=== PATIENT | female | born 1995 | race Native Hawaiian/Other Pacific Islander ===

== ENCOUNTER 2018-07-08 22:47 | Emergency (ER) | payer OTHER ==
[2018-07-09] MEDS ORDERED: Oxycodone/Acetaminophen 5/325 mg Tab PO STA (00:48)
[2018-07-09] MEDS ORDERED: Morphine 4 MG/ML VIAL IVP STA ×2 (01:20→03:32)
[2018-07-09] MEDS ORDERED: Morphine 4 MG/ML VIAL ONE ×2 (01:38→03:35)
[2018-07-09 01:43] LABS: BASO # 0.1 K/uL (0.0-0.2); BASO % 0.7 % (0.0-2.0); EOS # 0.1 K/uL (0.0-0.7); EOS % 0.4 % (0.0-4.0); HEMOGLOBIN 13.9 g/dL (12.0-16.0); LYMPH # 2.7 K/uL (1.0-4.3); LYMPH % 17.2 % (20.0-40.0); MEAN CELL VOLUME 86.7 fl (81.0-99.0); MEAN CORPUSCULAR HGB CONC 33.4 g/dL (33.0-37.0); MEAN PLATELET VOLUME 7.7 fl (7.2-11.7); MONO % 6.3 % (0.0-10.0); NEUT # 11.7 K/uL (1.8-7.0); NEUT % 75.4 % (50.0-75.0); NRBC % 0.1 % (0.0-0.0); RBC 4.8 Mil/uL (3.80-5.20); RED CELL DISTRIBUTION WIDTH 13.3 % (11.5-14.5); WHITE BLOOD COUNT 15.5 K/uL (4.8-10.8)
[2018-07-09 01:49] LABS: BLOOD UREA NITROGEN 9 mg/dl (7-17); CALCIUM 9.7 mg/dL (8.4-10.2); GFR NON-AFRICAN AMERICAN > 60
[2018-07-09 01:51] LABS: INR 1.1; PROTHROMBIN TIME 12.6 Seconds (9.8-13.1)
[2018-07-09] MEDS ORDERED: Sodium Chloride 0.9% 50 ML IV ONE (02:37)
[2018-07-09] MEDS ORDERED: Iodixanol 320 MG/ML 100 ML BOTTLE IV ONE (02:37)
--- NOTE | 2018-07-09 02:55 | ED PDOC ---
Upper Extremity Pain/Injury Time Seen by Provider: 07/09/18 00:38 Chief Complaint (Nursing): Upper Extremity Problem/Injury History Per: Patient History/Exam Limitations: no limitations Onset/Duration Of Symptoms: Mins Additional Complaint(s): Hx of depression presenting with L elbow pain, states she was arm wrestling aggressively and heard a loud pop in her left arm and developed pain and swelling. Denies other injuries. Past Medical History Reviewed: Historical Data, Nursing Documentation, Vital Signs Vital Signs: Last Vital Signs Temp 98.1 F 07/08/18 23:03 Pulse 120 H 07/08/18 23:03 Resp 18 07/08/18 23:03 BP Pulse Ox 99 07/08/18 23:03 - Medical History PMH: Depression - Family History Family History: States: Unknown Family Hx - Home Medications Home Medications: Ambulatory Orders Medication Instructions Recorded Hydrocodone/Acetaminophen [Vicodin 1 each PO Q8 #15 tablet 07/09/18 Es 7.5-300 mg Tablet] Ibuprofen [Motrin Tab] 600 mg PO Q6 #30 tab 07/09/18 - Allergies Allergies/Adverse Reactions: Allergies Allergy/AdvReac Type Severity Reaction Status Date / Time banana Allergy PAIN Verified 07/08/18 23:03 peanut Allergy SWELLING Verified 07/08/18 23:03 Penicillins Allergy RASH Verified 07/08/18 23:03 pineapple Allergy RASH Verified 07/08/18 23:03 Review of Systems ROS Statement: Except As Marked, All Systems Reviewed And Found Negative Musculoskeletal: Positive for: Arm Pain Physical Exam - Reviewed Nursing Documentation Reviewed: Yes Vital Signs Reviewed: Yes - Physical Exam Appears: Positive for: Well, Non-toxic, No Acute Distress Head Exam: Positive for: ATRAUMATIC, NORMAL INSPECTION, NORMOCEPHALIC Skin: Positive for: Normal Color, Warm, DRY Extremity: Positive for: Deformity, Swelling, Other (R elbow with swelling, tenderness to palpation, limited range of motion secondary to pain, distally neurovascularly intact, 2+ distal pulses, warm and well perfused) - Laboratory Results Result Diagrams: 07/09/18 01:30 07/09/18 01:30 Lab Results: PT 12.6 Seconds (9.8-13.1) 07/09/18 01:30 INR 1.1 07/09/18 01:30 APTT 31.0 Seconds (25.6-37.1) 07/09/18 01:30 - ECG O2 Sat by Pulse Oximetry: 99 Medical Decision Making Medical Decision Making: A/P: Hx of depression presenting with arm pain --fracture v. tendon disruption v. sprain --Will get xrays, pain medication and re-eval 2AM --Patient has comminuted distracted humerus fracture on x-ray --Will get CT angio to rule out vessel injury [id number] W/Contrast Findings: Acute displaced comminuted distal humeral diaphyseal fracture. No associated vascular occlusion, thrombosis or rupture. No associated dissection. No associated active contrast extravasation to suggest active bleeding. Soft tissue edema. Impression: Acute distal humeral fracture without acute vascular injury. [address] Joiner who recommends outpatient followup after splinting All results were discussed with patient, splint was placed by tech and supervis ed and checked by me, remained neurovascularly intact, well perfused Explained to patient the dangers of opiate abuse and to only take vicodin as absolutely necessary Well appearing upon discharge Disposition - Clinical Impression Clinical Impression: Elbow fracture - Patient ED Disposition Is Patient to be Admitted: No Counseled Patient/Family Regarding: Studies Performed, Diagnosis, Need For Followup, Rx Given - Disposition Referrals: Clive Joiner III, MD [Staff Provider] - Disposition: Routine/Home Disposition Time: 06:14 Condition: IMPROVED Prescriptions: Hydrocodone/Acetaminophen [Vicodin Es 7.5-300 mg Tablet] 1 each PO Q8 #15 tablet Ibuprofen [Motrin Tab] 600 mg PO Q6 #30 tab Instructions: Elbow Fracture (DC), Taking Narcotics Safely, Opioids for Short- Term Treatment of Pain Forms: [employer] (Malawian)
[2018-07-09 04:12] VITALS: TEMP 98.6
[2018-07-09 06:14] VITALS: O2SAT 99
[2018-07-09 06:31] VITALS: BP 127/78; PULSE 90; RESP 16
--- NOTE | 2018-07-09 08:38 | RAD ---
Date of service: 07/09/2018 HISTORY: fractured elbow COMPARISON: None available. FINDINGS: BONES: Complete fracture of the left humeral shaft. JOINTS: Normal. No osteoarthritis. SOFT TISSUE: Normal. OTHER FINDINGS: None . IMPRESSION: Complete fracture of the left humeral shaft.
--- NOTE | 2018-07-09 08:40 | RAD ---
Date of service: 07/09/2018 PROCEDURE: Radiographs of the left elbow. HISTORY: loud "pop" while arm wrestling COMPARISON: No prior. FINDINGS: BONES: Complete fracture of the distal humeral shaft with comminution. JOINTS: Normal. No osteoarthritis. SOFT TISSUES: Normal. JOINT EFFUSION: None. OTHER FINDINGS: None IMPRESSION: Complete fracture of the distal humeral shaft with comminution.
--- NOTE | 2018-07-09 11:56 | CT ---
Date of service: 07/09/2018 PROCEDURE: HISTORY: fracture, r/o vessel damage COMPARISON: None TECHNIQUE: FINDINGS: Acute displaced comminuted distal humeral diaphyseal fracture. Subcu edema. No evidence of hematoma, vascular occlusion, thrombosis or rupture. IMPRESSION: Acute displaced comminuted distal humeral diaphyseal fracture.
== END 2018-07-09 06:31 | disposition home or self-care (01) ==
LOC: H.ER 22:47
DX: S42.402A Unspecified fracture of lower end of left humerus, initial encounter for closed fracture (principal); X50.9XXA Other and unspecified overexertion or strenuous movements or postures, initial encounter; X50.0XXA Overexertion from strenuous movement or load, initial encounter; Y93.72 Activity, wrestling
CPT/HCPCS: 29105; 73060; 73080; 73201; 80048; 81025; 85025; 85610; 85730; 86850; 86900; 96374; 96375; 96376; 99285; J1885; J2270; Q9967

== ENCOUNTER 2018-08-12 22:02 | Emergency (ER) | payer OTHER ==
[2018-08-12 22:22] VITALS: BP 131/82; PULSE 110; RESP 18; TEMP 98.8; O2SAT 99
[2018-08-12] MEDS ORDERED: Oxycodone/Acetaminophen 5/325 mg Tab PO STA (22:31)
[2018-08-12] MEDS ORDERED: Morphine 4 MG/ML VIAL IVP STA (22:36)
[2018-08-12] MEDS ORDERED: Morphine 4 MG/ML VIAL ONE (22:36)
[2018-08-12] MEDS ORDERED: ceFAZolin 2 GM in Sodium Chloride 0.9% 100 ML IVPB STA (22:54)
--- NOTE | 2018-08-12 23:08 | ED PDOC ---
Arrival/HPI - General Chief Complaint: Finger,Hand,&Wrist Time Seen by Provider: 08/12/18 22:17 Historian: Patient - History of Present Illness Narrative History of Present Illness (Text): 08/12/18 22:17: 22YR OLD FEMALE WITH NO MEDICAL HISTORY PRESENTS TO THE ED WITH INJURY TO RIGHT 4TH DIGIT SUSTAINED WHILE IN A [employer] BATHROOM, SHE REPORTS HER FINGER GOT CAUGHT IN DOOR HINGE AND SOME ONE SHUT THE DOOR AROUND 10PM. PATIENT CAME TO THE ED IMMEDIATELY AFTER INCIDENT. SHE REPORTS SHE HAD BEEN DRINKING ALCOHOL SHE WAS CELEBRATING HER BIRTHDAY. PATIENTS STATES HER LAST TETANUS WAS TWO MONTHS AGO. PATIENT DENIES TAKING ANYTHING FOR PAIN. Past Medical History - Provider Review Nursing Documentation Reviewed: Yes ETHAN Report Viewed: No - Travel History Have you recently traveled outside [place] w/in the past 3 mons?: No - Past History Past History: No Previous - Tetanus Immunization Tetanus Immunization: Up to Date - Cardiac Hx Cardiac Disorders: No Hx Angina: No Hx Atrial Fibrillation: No Hx Coronary Artery Disease: No Hx Cardiac Arrhythmia: No Hx Circulatory Problems: No Hx Congestive Heart Failure: No Hx TN: No Hx Heart Murmur: No Hx Heart Transplant: No Hx Hyperlipemia: No Hx Hypertension: No Hx Hypotension: No Hx Internal Defibrillator: No Hx Mitral Valve Prolapse: No Hx Peripheral Edema: No Hx Peripheral Vascular Disease: No - Psychiatric Hx Depression: Yes Hx Substance Use: No - Surgical History Hx Orthopedic Surgery: Yes (left humerus surgery) - Anesthesia Hx Anesthesia: Yes Family/Social History Family/Social History: Unknown Family HX Smoking Status: Never Smoked Hx Alcohol Use: No Frequency of alcohol use: Socially Hx Substance Use: No Hx Substance Use Treatment: No Allergies/Home Meds Allergies/Adverse Reactions: Allergies banana Allergy (Verified 08/12/18 22:17) PAIN peanut Allergy (Verified 08/12/18 22:17) SWELLING Penicillins Allergy (Verified 08/12/18 22:17) RASH pineapple Allergy (Verified 08/12/18 22:17) RASH Review of Systems - Physician Review All systems were reviewed & negative as marked: Yes - Review of Systems Constitutional: Normal Eyes: Normal ENT: Normal Respiratory: Normal Cardiovascular: Normal Gastrointestinal: Normal Genitourinary Female: Normal Musculoskeletal: Other (4TH DIGIT LACERATION, ) Skin: Laceration (RIGHT 4TH DIGIT ) Neurological: Normal Endocrine: Normal Hemo/Lymphatic: Normal Psychiatric: Normal Physical Exam - Physical Exam Narrative Physical Exam (Text): 08/12/18 22:17: RIGHT 4TH DIGIT INCOMPLETE AVULSION OF THE FINGER TIP WITH NAIL INVOLVEMENT. POSS EXTENSOR TENDON INVOLVEMENT HAS PATIENT HAS LIMITED ROM OF FINGER. BLEEDING CONTROLLED. UNABLE TO ASSESS CAP REFILL DUE TO EXTENT OF INJURY. Vital Signs Temp Pulse Resp BP Pulse Ox 08/12/18 22:17 98.8 F 110 H 18 131/82 99 Temperature: Afebrile Blood Pressure: Normal Pulse: Regular Respiratory Rate: Normal Appearance: Positive for: Well-Appearing, Non-Toxic, Uncomfortable Pain Distress: Severe Mental Status: Positive for: Alert and Oriented X 3 - Systems Exam Head: Present: Atraumatic, Normocephalic Pupils: Present: PERRL Conjunctiva: Present: Normal Respiratory/Chest: Present: Clear to Auscultation Cardiovascular: Present: Regular Rate and Rhythm Upper Extremity: Present: Deformity (RIGHT 4TH DIGIT INCOMPLETE AVULSION ) Skin: Present: Warm Psychiatric: Present: Alert, Oriented x 3 Medical Decision Making ED Course and Treatment: -CBC -BMP -XRAY HAND -UPREG -MORPHINE 4MG IV 08/12/18 23:00: RIGHT HAND XRAY: FX TO RIGHT 4TH DISTAL PHALANX. CASE DISCUSSED WITH DR. CRAWFORD AND Dr. Merida consulted. MD will come to see patient in the ED. PATIENT TO BE STARTED ON ANCEF 2GM IV STAT FOR OPEN FX. 08/12/18 23:40: NO SIGNS OF ALLERGIC REACTION AFTER STARTING ANCEF, DR. MERIDA FOR REPAIR OF FINGER. - RAD Interpretation Narrative RAD Interpretations (Text): 08/12/18 22:58: RIGHT HAND XRAY; FX OF DISTAL PHALANX 4 TH DIGIT. Radiology Orders: 08/12/18 22:33 HAND RIGHT 3 VIEWS [RAD] Stat - Medication Orders Current Medication Orders: Cefazolin Sodium 2 gm/ Sodium (Chloride) 100 mls @ 100 mls/hr IVPB ONCE STA; Protocol Stop: 08/12/18 23:53 Discontinued Medications Morphine Sulfate (Morphine) 4 mg IVP STAT STA Stop: 08/12/18 22:37 Last Admin: 08/12/18 22:37 Dose: 4 mg MAR Pain Assessment Document 08/12/18 22:37 [facility] (Rec: 08/12/18 22:37 [facility] [id number]) Pain Reassessment Is this a pain reassessment? No Sleep Is patient sleeping during reassessment? No Presence of Pain Presence of Pain Yes Location Left, Right or Bilateral Right Pain Location Body Site Ring Finger Description Description Constant Intensity of Pain at present 8 Pain Behavior Irritability Withdrawal from Touch Aggravating Factors ADL's Changing Position Alleviating Factors/Management Medication Techniques Alleviating Factors Medication IVP Administration Document 08/12/18 22:37 [facility] (Rec: 08/12/18 22:37 [facility] [id number]) Charges for Administration # of IVP Administrations 1 Disposition/Present on Arrival - Present on Arrival Any Indicators Present on Arrival: No History of DVT/PE: No History of Uncontrolled Diabetes: No Urinary Catheter: No History of Decub. Ulcer: No - Disposition Have Diagnosis and Disposition been Completed?: Yes Diagnosis: Fracture of distal phalanx of finger of right hand Disposition: HOME/ ROUTINE Disposition Time: 00:00 Patient Plan: Transfer To ([facility] care to [facility] ) Patient Problems: Current Active Problems Problem Status Onset Fracture of distal phalanx of finger of right hand Acute Condition: STABLE Discharge Instructions (ExitCare): Finger Fracture (DC) Print Language: LUX[place]BOURGISH Additional Instructions: Call and make an appointment to see Dr. Merida on Wednesday 08/16. Prescriptions: Cephalexin [Keflex] 500 mg PO Q6H #40 capsule Ibuprofen [Motrin Tab] 800 mg PO Q8H PRN #30 tab PRN Reason: Pain, Moderate (4-7) oxyCODONE/Acetaminophen [Percocet 5/325 mg Tab] 1 ea PO Q6H PRN #15 tab PRN Reason: Pain, Severe (8-10) Referrals: Shar Merida MD [Medical Doctor] -
[2018-08-12 23:20] LABS: BASO # 0.1 K/uL (0.0-0.2); BLOOD UREA NITROGEN 12 mg/dl (7-17); EOS # 0.2 K/uL (0.0-0.7); EOS % 1.4 % (0.0-4.0); GFR NON-AFRICAN AMERICAN > 60; HEMOGLOBIN 13.5 g/dL (12.0-16.0); LYMPH # 4.8 K/uL (1.0-4.3); LYMPH % 37.3 % (20.0-40.0); MEAN CELL VOLUME 88.9 fl (81.0-99.0); MEAN CORPUSCULAR HEMOGLOBIN 30.1 pg (27.0-31.0); MEAN CORPUSCULAR HGB CONC 33.9 g/dL (33.0-37.0); MEAN PLATELET VOLUME 8.2 fl (7.2-11.7); MONO # 0.8 K/uL (0.0-0.8); MONO % 6.3 % (0.0-10.0); NRBC % 0.1 % (0.0-0.0); RBC 4.5 Mil/uL (3.80-5.20); RED CELL DISTRIBUTION WIDTH 13.9 % (11.5-14.5)
[2018-08-12 23:21] LABS: CALCIUM 9.6 mg/dL (8.4-10.2)
[2018-08-12] MEDS ORDERED: Povidone Iodine Topical 10% Sol ONE (23:31)
--- NOTE | 2018-08-13 10:54 | RAD ---
PROCEDURE: Right Hand Radiographs. HISTORY: finger injury COMPARISON: None. TECHNIQUE: 3 views obtained. FINDINGS: BONES: Open fracture involving the distal 4th phalanx with volar displacement of the distal fracture segment. JOINTS: Unremarkable. SOFT TISSUES: Normal. OTHER FINDINGS: None. IMPRESSION: Open displaced fracture involving the distal 4th phalanx.
--- NOTE | 2018-08-13 11:27 | RAD ---
PROCEDURE: Right Hand Radiographs. HISTORY: post reduction COMPARISON: Right hand radiographs performed approximately 2 hours prior TECHNIQUE: 3 views obtained. FINDINGS: Distal 4th digit splint is now present, limiting evaluation of fine bony detail. There has been interval reduction of the previously described distal 4th digit open fracture. Osseous structures are now in anatomic alignment. No other significant interval changes identified. IMPRESSION: Interval splinting and reduction of distal 4th digit fracture. No other significant interval change.
== END 2018-08-13 00:54 | disposition home or self-care (01) ==
LOC: H.ER 22:02
DX: S62.634A Displaced fracture of distal phalanx of right ring finger, initial encounter for closed fracture (principal); W23.1XXA Caught, crushed, jammed, or pinched between stationary objects, initial encounter; Z86.59 Personal history of other mental and behavioral disorders; Z88.0 Allergy status to penicillin
CPT/HCPCS: 73130; 80048; 80320; 81025; 85025; 96365; 96375; 99284; J0690; J2270

== ENCOUNTER 2018-08-13 10:44 | Emergency (ER) | payer OTHER ==
[2018-08-13 10:50] VITALS: TEMP 98.5; O2SAT 98
--- NOTE | 2018-08-13 12:53 | ED PDOC ---
HPI: Wound Care - HPI Time Seen by Provider: 08/13/18 10:59 Chief Complaint (Nursing): Wound Check History Per: Patient Exam Limitations: no limitations Onset/Duration Of Symptoms: Hrs Additional Complaint(s): Pt. is a healthy 22 y/o Female who reports she was seen in this ED late last night, had open fx to left 4th finger, that was repaired by Dr. Krishnan. Pt. reports the dressing fell off this am and noted some bleeding from the wound. Past Medical History Vital Signs: Last Vital Signs Temp 98.5 F 08/13/18 10:48 Pulse 86 08/13/18 10:48 Resp 17 08/13/18 10:48 BP 117/75 08/13/18 10:48 Pulse Ox 98 08/13/18 10:48 - Medical History PMH: Depression Denies: Atrial Fibrillation, CAD, Cardia Arrhythmia, CHF, HTN, Mitral Valve Prolapse, Peripheral Edema - Family History Family History: States: Unknown Family Hx - Home Medications Home Medications: Ambulatory Orders Medication Instructions Recorded Hydrocodone/Acetaminophen [Vicodin 1 each PO Q8 #15 tablet 07/09/18 Es 7.5-300 mg Tablet] Ibuprofen [Motrin Tab] 600 mg PO Q6 #30 tab 07/09/18 Cephalexin [Keflex] 500 mg PO Q6H #40 capsule 08/12/18 Ibuprofen [Motrin Tab] 800 mg PO Q8H PRN #30 tab 08/12/18 oxyCODONE/Acetaminophen [Percocet 1 ea PO Q6H PRN #15 tab 08/12/18 5/325 mg Tab] - Allergies Allergies/Adverse Reactions: Allergies Allergy/AdvReac Type Severity Reaction Status Date / Time banana Allergy PAIN Verified 08/13/18 10:59 peanut Allergy SWELLING Verified 08/13/18 10:59 Penicillins Allergy RASH Verified 08/13/18 10:59 pineapple Allergy RASH Verified 08/13/18 10:59 Physical Exam - Physical Exam Appears: Positive for: Well, Non-toxic Skin: Positive for: Normal Color Extremity: Positive for: Other (Right Hand: 4th digit, sutures wound to distal phalanx with small bleeding from ulnar aspect of wound, no signs of infection. ) - ECG O2 Sat by Pulse Oximetry: 98 Medical Decision Making Medical Decision Making: Pt. well appearing, no evidence of infection. Case d/w Dr. Krishnan, who will come to ED and assume care of wound. Pt. tolerated procedure well and she was advied to fill antibiotic rx and take as directed. Disposition - Clinical Impression Clinical Impression: Encounter for wound re-check - Disposition Referrals: Shar Krishnan MD [Medical Doctor] - 08/16/18 Disposition: Routine/Home Disposition Time: 13:09 Condition: STABLE Forms: qunb (Guyanese)
[2018-08-13 17:04] VITALS: BP 119/70; PULSE 82; RESP 18
== END 2018-08-13 14:00 | disposition home or self-care (01) ==
LOC: H.ER 10:44
DX: Z48.01 Encounter for change or removal of surgical wound dressing (principal); Z86.59 Personal history of other mental and behavioral disorders; Z88.0 Allergy status to penicillin